=== PATIENT | female | born 1950 | race Caucasian/White ===

== ENCOUNTER 2025-02-08 15:14 | Inpatient (IN) | payer MEDICARE, MEDICAID ==
[~2025-02-08] VITALS: Ht 180.3 cm; Wt 71.8 kg
[~2025-02-08 15:14] MED LIST: ASPI-378 PO; HYDR-4833 PO; NITR50CA52 PO
[2025-02-08 16:42] LABS: Hematocrit 41.8 % (36.0-46.0); Hemoglobin 14.1 g/dL (12.2-16.2); Mean Corpuscular Hemoglobin 30.7 pg (28.0-32.0); Mean Corpuscular Volume 90.8 fL (80.0-100.0); Nucleated Red Blood Cells % 0.0 %
[2025-02-08 16:50] LABS: Chloride 103 mmol/L (98-107); Potassium 3.6 mmol/L (3.5-5.1); Sodium 141 mmol/L (136-145)
[2025-02-08 16:51] LABS: Anion Gap 12 (5-15); Carbon Dioxide 26 mmol/L (20-31)
[2025-02-08 16:52] LABS: Calcium 8.8 mg/dL (8.7-10.4)
[2025-02-08 16:56] LABS: Glucose 96 mg/dL (74-106)
[2025-02-08 16:57] LABS: BUN/Creatinine Ratio 12.5 (10.0-20.0)
[2025-02-08 17:07] LABS: Blood Urea Nitrogen 7 mg/dL (9-23)
--- NOTE | 2025-02-08 17:08 | DVH ---
CHEST RADIOGRAPH Indication: diarrhea and weakness Technique: Single frontal view of the chest was obtained Comparison: None FINDINGS: Lines and Tubes: None Lungs: No focal consolidation. Pleura: No effusion. No pneumothorax. Cardiomediastinal contours: Unremarkable Bones: No acute osseous abnormality. IMPRESSION: 1. No acute cardiopulmonary disease.
--- NOTE | 2025-02-08 18:46 | ED.PDOC ---
History of Present Illness HPI Comments 74-year-old female brought in by ambulance for 5x day history of diarrhea. Patient denies having any abdominal pain, nausea, vomiting, further acute symptoms. Chief Complaint: Diarrhea Time Seen by MD: 16:20 Primary Care Provider: KARIE Soliz Notes: Nurses Notes, Bread Molder Notes, Medications, Allergies Allergies: Coded Allergies: NO KNOWN ALLERGIES (Unverified , 11/03/14) Home Meds Active Scripts Aspirin (GERDA ASPIRIN EC LOW DOSE) 81 Mg Tab, 1 TAB PO DAILY, #30 TAB 0 Refills Prov:CECY FELIZ MD 11/06/14 Nitrofurantoin (MACRODANTIN CAPSULE) 50 Mg Cp, 100 MG PO BID, #10 CP Prov:CECY FELIZ MD 11/06/14 Reported Medications Hydrocodone-Acetaminophen ([place] 5/325MG) 1 Tab Tb, 1 TAB PO TID PRN, #30 TAB 11/06/14 Information Source: Patient, Emergency Med Personnel Mode of Arrival: EMS Severity: Moderate Timing: Hours Duration: Since onset Prehospital treatment: 12 Lead EKG, Accucheck, Account Processor Past Medical History PAST MEDICAL HISTORY: Denies Surgical History: Hysterectomy COOPER APPRENTICE History: No Pertinent 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 History Family History Family History: Unobtainable Social History Smoker: Non-Smoker Alcohol: Occasionally Drugs: Marijuana Lives In: Home All Other Systems: Reviewed and Negative (Comprehensive review of systems are negative unless otherwise stated in HPI) Physical Exam General Appearance: No Apparent Distress, Normal, Other (Appears uncomfortable) HEENT: Normal ENT Inspection, Pharynx Normal, TMs Normal Neck: Full Range of Motion, Non-Tender, Normal, Normal Inspection Respiratory: Chest Non-Tender, Lungs Clear, No Accessory Muscle Use, No Respir atory Distress, Normal Breath Sounds Cardiovascular: No Edema, No JVD, No Murmur, No Gallop, Normal Peripheral Pulses, Regular Rate/Rhythm Breast Exam: Deferred Gastrointestinal: No Organomegaly, Non Tender, No Pulsatile Mass, Normal Bowel Sounds, Soft Genitalia: Deferred Pelvic: Deferred Rectal: Deferred Extremities: No calf tenderness, Normal capillary refill, Normal inspection, Normal range of motion, Non-tender, No pedal edema Musculoskeletal : Apperance: Normal Neurologic: Alert, credit collections clerk II-XII nml as Tested, No Motor Deficits, Normal Affect, Normal Mood, No Sensory Deficits Cerebellar Function: Normal Reflexes: Normal Skin: Dry, Normal Color, Warm Lymphatic: No Adenopathy Was a procedure done? Was a procedure done?: No Differential Dx Considerations may include: Viral, dehydration, electrolyte imbalance, gastritis, among others X-Ray, Labs, Meds, VS Vital Signs Date Time Temp Pulse Resp B/P (MAP) Pulse Ox O2 Delivery O2 Flow Rate FiO2 02/08/25 15:35 98.4 72 18 104/66 96 98.4 Lab Test 02/08/25 16:27 Range/Units White Blood Count 6.2 4.4-10.8 10^3/uL Red Blood Count 4.61 4.0-5.20 10^6/uL Hemoglobin 14.1 12.2-16.2 g/dL Hematocrit 41.8 36.0-46.0 % Mean Corpuscular Volume 90.8 80.0-100.0 fL Mean Corpuscular Hemoglobin 30.7 28.0-32.0 pg Mean Corpuscular Hemoglobin Concent 33.8 32.0-36.0 g/dL Red Cell Distribution Width 14.5 H 11.8-14.3 % Platelet Count 221 140-450 10^3/uL Mean Platelet Volume 8.6 6.9-10.8 fL Neutrophils (%) (Auto) 59.6 37.0-80.0 % Lymphocytes (%) (Auto) 26.1 10.0-50.0 % Monocytes (%) (Auto) 12.6 H 0.0-12.0 % Eosinophils (%) (Auto) 1.5 0.0-7.0 % Basophils (%) (Auto) 0.2 0.0-2.0 % Neutrophils # (Auto) 3.7 1.6-8.6 10 ^3/uL Lymphocytes # (Auto) 1.6 0.4-5.4 10 ^3/uL Monocytes # (Auto) 0.8 0-1.3 10 ^3/uL Eosinophils # (Auto) 0.1 0-0.8 10 ^3/uL Basophils # (Auto) 0 0-0.2 10 ^3/uL Nucleated Red Blood Cells 0.0 % Sodium Level 141 136-145 mmol/L Potassium Level 3.6 3.5-5.1 mmol/L Chloride Level 103 98-107 mmol/L Carbon Dioxide Level 26 20-31 mmol/L Anion Gap 12 5-15 Blood Urea Nitrogen 7 L 9-23 mg/dL Creatinine 0.56 0.550-1.02 mg/dL Glomerular Filtration Rate Calc 95 >90 mL/min BUN/Creatinine Ratio 12.5 10.0-20.0 Serum Glucose 96 74-106 mg/dL Calcium Level 8.8 8.7-10.4 mg/dL Current Medications Medications (Trade) Dose Ordered Sig/Mary Route Start Time Stop Time Status Last Admin Sodium Chloride 1,000 ml @ 1,000 mls/hr Q1H ONCE IV 02/08/25 16:30 02/08/25 17:29 DC 02/08/25 19:15 Ondansetron HCl (Zofran) 4 mg ONCE ONCE IV 02/08/25 16:30 02/08/25 16:32 DC 02/08/25 19:15 Time of 1ST Reevaluation: 16:50 Reevaluation 1ST: Unchanged Patient Education/Counseling: Diagnosis, Treatment, Need For Follow Up Family Education/Counseling: No Family Present Additional Information Additional historians: None Previous medical visits reviewed: None Additional imaging and studies ordered and reviewed: Chest x-ray Labs ordered and reviewed: CBC, BMP, UA SEPSIS Sepsis Screen Date sepsis recognized/suspect: Feb 08, 2025 Time Sepsis recognized/suspect: 151 Recent Procedure: No On Antibiotic Therapy: No Respiratory Rate >20: No Heart Rate >90: No Temp<36 C (96.8 F) or >38.3 C: No SBP <90 or MAP <65 mmHG: No New Acute Mental Status Change: No Is the patient on CPAP, BIPAP,: No Physician Orders Urinalysis (02/08/25 16:04) Chest Portable (02/08/25 16:04) Allergies (02/08/25 19:28) Code Status (02/08/25 19:28) Sodium Chloride Lock (Saline Lock Ns) (02/08/25 22:00) Oxygen Per Hour (02/08/25 19:28) Hydrocodone-Acet 5/325mg Tab ([place] 32 (02/08/25 19:30) Ondansetron Hcl (Zofran) (02/08/25 19:30) Fall Risk Precautions In Place QSHIFT (02/08/25 19:28) Complete Blood Count (02/09/25 04:00) Comprehensive Metabolic Panel (02/09/25 04:00) Condition: Serious (02/08/25 19:28) Acetaminophen Tablet (Tylenol Tablet) (02/08/25 19:30) Clear Liq Diet (02/09/25 Breakfast) Maintain Bed Rest (02/08/25 19:28) Sequential Compression Device (02/08/25 ) Vital Signs Date Time Temp Pulse Resp B/P (MAP) Pulse Ox O2 Delivery O2 Flow Rate FiO2 02/08/25 15:35 98.4 72 18 104/66 96 98.4 Laboratory Tests Test 02/08/25 16:27 White Blood Count 6.2 10^3/uL (4.4-10.8) Medications Medications Dose Ordered Sig/Mary Route Start Time Stop Time Status Last Admin Dose Admin Ondansetron HCl 4 mg ONCE ONCE IV 02/08/25 16:30 02/08/25 16:32 DC 02/08/25 19:15 Sodium Chloride 1,000 ml @ 1,000 mls/hr Q1H ONCE IV 02/08/25 16:30 02/08/25 17:29 DC 02/08/25 19:15 Departure 1 Departure Time of Disposition: 21:28 (Patient with intractable diarrhea and near-syncope likely from dehydration. We will admit patient for further workup and expert consultation) Impression: Primary Impression: Near syncope Additional Impressions: Acute dehydration Intractable diarrhea Disposition: ADMITTED INPATIENT Admit to: Tele Condition: Guarded Critical Care Note Critical Care Time?: No Stability Stability form required: No Heart Score Heart Score: Heart Score Response (Comments) Value History N/A 0 EKG N/A 0 Age N/A 0 Risk Factors N/A 0 Troponin N/A 0 Total 0 I personally scribed for JESÚS ORNELAS MD ([email or web address]) on 02/08/25 at 18:46. Electronically submitted by Norman Holt [email or web address]). JESÚS ORNELAS MD Feb 08, 2025 18:46
[2025-02-08] MEDS: ONDANSETRON HCL 4 MG/2 ML VIAL IV ONE (19:15)
[2025-02-08] MEDS: SODIUM CHLORIDE 0.9% 1,000 ML IV ONE (19:15)
[2025-02-08] MEDS ORDERED: HYDROcodone-ACET 5/325MG TAB PO PRN (19:30)
[2025-02-08] MEDS ORDERED: ONDANSETRON HCL 4 MG/2 ML VIAL IV PRN (19:30)
--- NOTE | 2025-02-08 19:58 | DVHHP2 ---
History of Present Illness Reason for Visit: Diarrhea History of Present Illness The patient is a 74-year-old female who denies past medical history presented to [facility] ED with complaint of diarrhea for the past 5 days. Patient reports that she has been experiencing diarrhea associated with generalized weakness, getting worse that prompted this visit. Patient was seen and evaluated in the ED, laboratory data shows WBC 6.2, platelets 221, sodium 141, potassium 3.6, BUN 7, creatinine 0.56, GFR 95, glucose 96, calcium 8.8, blood pressure 104/66, heart rate 72, temperature 98.4 F, O2 saturation 97% on room air. Chest x-ray show no acute cardiopulmonary disease. Abdomen/pelvis CT results pending, please see medication orders section in the computer. On my assessment, patient denied chest pain, no dizziness, headache, diaphoresis, shortness of breaths, no abdominal pain, diarrhea at this moment, nausea, vomiting, fever, no chills. Patient was admitted for further evaluation and medical management. Past Medical History Denies past medical history Past Surgical History Hysterectomy Family History Reviewed, noncontributory to the management of this case. Past Social History The patient lives at home, denies smoking, drinks alcohol occasionally, uses marijuana. Review of Systems Constitutional: Yes: Weakness; No: Fever, Chills, Sweats, Malaise, Other Eyes: No: Pain, Vision change, Conjunctivae inflammation, Eyelid inflammation, Other, Redness ENT: No: Ear pain, Ear discharge, Nose pain, Nose discharge, Nose congestion, Mouth pain, Mouth swelling, Throat pain, Throat swelling, Other Respiratory: No: Cough, Dry, Shortness of breath, SOB with excertion, Wheezing, Hemoptysis, Pleuritic Pain, Sputum, Wheezing, Other Cardiovascular: No: Chest Pain, Palpitations, Orthopnea, Paroxysmal Noc. Dyspnea, Edema, Lt Headedness, Other Gastrointestinal: Diarrhea; No: Nausea, Vomiting, Abdominal Pain, Constipation, Melena, Hematochezia, Other Genitourinary: No Dysuria, No Frequency, No Incontinence, No Hematuria, No Retention, No Other Musculoskeletal: No: other, neck pain, shoulder pain, arm pain, back pain, hand pain, leg pain, foot pain Skin: No: Rash, Lesions, Jaundice, Bruising, Other Neurological: No: Weakness, Numbness, Incoordination, Change in speech, C onfusion, Seizures, Other Allergies: Coded Allergies: NO KNOWN ALLERGIES (Unverified , 11/03/14) Medications Current Medications Medications Dose Ordered Sig/Mary Route Start Time Stop Time Status Last Admin Dose Admin Sodium Chloride 10 ml Q8HR IV 02/08/25 22:00 Acetaminophen/ Hydrocodone Bitart 1 tab Q4HP PRN PO 02/08/25 19:30 Ondansetron HCl 4 mg Q4HP PRN IV 02/08/25 19:30 Acetaminophen 650 mg Q6HP PRN PO 02/08/25 19:30 Exam Vital Signs Vital Signs Date Time Temp Pulse Resp B/P (MAP) Pulse Ox O2 Delivery O2 Flow Rate FiO2 02/08/25 15:35 98.4 72 18 104/66 96 98.4 General Appearance: Alert, Oriented X3, Cooperative, No acute distress HEENT: Atraumatic, PERRLA, EOMI, Mucous membr. moist/pink Respiratory: Normal air movement Cardiovascular: Regular rate, Normal S1, Normal S2, No murmurs Abdominal: Normal bowel sounds, Soft, No tenderness, No hepatospenomegaly, No masses Extremities: No clubbing, No cyanosis, No edema, Normal pulses, No tenderness/swelling Skin: No rashes, No significant lesion Neuro: Normal speech, Normal tone, Sensation intact, Cranial nerves 3-12 NL, Reflexes 2+, Other (Generalized weakness) Psych/Mental Status: Mental status NL, Mood NL Labs/Xrays Labs Test 02/08/25 16:27 Range/Units White Blood Count 6.2 4.4-10.8 10^3/uL Red Blood Count 4.61 4.0-5.20 10^6/uL Hemoglobin 14.1 12.2-16.2 g/dL Hematocrit 41.8 36.0-46.0 % Mean Corpuscular Volume 90.8 80.0-100.0 fL Mean Corpuscular Hemoglobin 30.7 28.0-32.0 pg Mean Corpuscular Hemoglobin Concent 33.8 32.0-36.0 g/dL Red Cell Distribution Width 14.5 H 11.8-14.3 % Platelet Count 221 140-450 10^3/uL Mean Platelet Volume 8.6 6.9-10.8 fL Neutrophils (%) (Auto) 59.6 37.0-80.0 % Lymphocytes (%) (Auto) 26.1 10.0-50.0 % Monocytes (%) (Auto) 12.6 H 0.0-12.0 % Eosinophils (%) (Auto) 1.5 0.0-7.0 % Basophils (%) (Auto) 0.2 0.0-2.0 % Neutrophils # (Auto) 3.7 1.6-8.6 10 ^3/uL Lymphocytes # (Auto) 1.6 0.4-5.4 10 ^3/uL Monocytes # (Auto) 0.8 0-1.3 10 ^3/uL Eosinophils # (Auto) 0.1 0-0.8 10 ^3/uL Basophils # (Auto) 0 0-0.2 10 ^3/uL Nucleated Red Blood Cells 0.0 % Sodium Level 141 136-145 mmol/L Potassium Level 3.6 3.5-5.1 mmol/L Chloride Level 103 98-107 mmol/L Carbon Dioxide Level 26 20-31 mmol/L Anion Gap 12 5-15 Blood Urea Nitrogen 7 L 9-23 mg/dL Creatinine 0.56 0.550-1.02 mg/dL Glomerular Filtration Rate Calc 95 >90 mL/min BUN/Creatinine Ratio 12.5 10.0-20.0 Serum Glucose 96 74-106 mg/dL Calcium Level 8.8 8.7-10.4 mg/dL PATIENT: CHRISTINE MENJIVAR ACCT: [id number] UNIT: [id number] : 1950 LOC: ER ROOM / BED: / AGE / SEX: 74 / F ADM STATUS: REG ER SERVICE 1604 ORDERING PHYSICIAN: JESÚS ORNELAS MD PROCEDURE(s): CXRP - CHEST PORTABLE REASON: diarrhea and weakness ORDER NUMBER(s): [id number], ACCESSION NUMBER(s): [id number] CHEST RADIOGRAPH Indication: diarrhea and weakness Technique: Single frontal view of the chest was obtained Comparison: None FINDINGS: Lines and Tubes: None Lungs: No focal consolidation. Pleura: No effusion. No pneumothorax. Cardiomediastinal contours: Unremarkable Bones: No acute osseous abnormality. IMPRESSION: 1. No acute cardiopulmonary disease. SEPSIS Sepsis Screen Date sepsis recognized/suspect: Feb 08, 2025 Time Sepsis recognized/suspect: 1510 Recent Procedure: No On Antibiotic Therapy: No Respiratory Rate >20: No Heart Rate >90: No Temp<36 C (96.8 F) or >38.3 C: No SBP <90 or MAP <65 mmHG: No New Acute Mental Status Change: No Is the patient on CPAP, BIPAP,: No Physician Orders Urinalysis (02/08/25 16:04) Chest Portable (02/08/25 16:04) Allergies (02/08/25 19:28) Code Status (02/08/25:) Sodium Chloride Lock (Saline Lock Ns) (02/08/25 22:00) Oxygen Per Hour (02/08/25:) Hydrocodone-Acet 5/325mg Tab ([place] 5/32 (02/08/25 19:30) Ondansetron Hcl (Zofran) (02/08/25 19:30) Fall Risk Precautions In Place QSHIFT (02/08/25:) Complete Blood Count (02/09/25 04:00) Comprehensive Metabolic Panel (02/09/25 04:00) Condition: Serious (02/08/25 19:28) Acetaminophen Tablet (Tylenol Tablet) (02/08/25 19:30) Clear Liq Diet (02/09/25 Breakfast) Maintain Bed Rest (02/08/25:28) Sequential Compression Device (02/08/25 ) Vital Signs Date Time Temp Pulse Resp B/P (MAP) Pulse Ox O2 Delivery O2 Flow Rate FiO2 02/08/25 15:35 98.4 72 18 104/66 96 98.4 Laboratory Tests Test 02/08/25 16:27 White Blood Count 6.2 10^3/uL (4.4-10.8) Medications Medications Dose Ordered Sig/Mary Route Start Time Stop Time Status Last Admin Dose Admin Ondansetron HCl 4 mg ONCE ONCE IV 02/08/25 16:30 02/08/25 16:32 DC 02/08/25 19:15 4 MG Sodium Chloride 1,000 ml @ 1,000 mls/hr Q1H ONCE IV 02/08/25 16:30 02/08/25 17:29 DC 02/08/25 19:15 1,000 MLS/HR Assessment/Plan Assessment/Plan Intractable diarrhea Near syncope Acute dehydration Generalized weakness Plan 1. Admit to telemetry urinary 2. Breathing treatment 3. Pain control management 4. Management of fluids and electrolytes 5. Consultation for hospitalist 6. Diagnostic tests chest x-ray 7. DVT prophylaxis on SCDs 8. Repeat labs CBC, CMP in a.m. 9. Continue with current medical management 10. Treatment plan discussed with patient and RN. Patient verbalized understanding. Plan discussed with: Patient, Other (RN) My Orders Orders - JEWELS BORJA DNP Procedure Category Date Status Time Allergies MUKESH 02/08/25 In Process 19:28 Code Status CODE 02/08/25 Transmitted 19:28 Sodium Chloride Lock PHA 02/08/25 In Process (Saline Lock Ns) 22:00 Oxygen Per Hour RT 02/08/25 Transmitted 19:28 Hydrocodone-Acet PHA 02/08/25 In Process 5/325mg Tab ([place] 19:30 Ondansetron Hcl PHA 02/08/25 In Process (Zofran) 19:30 Fall Risk Precautions MUKESH 02/08/[address] 19:28 Complete Blood Count LAB 02/09/25 Verified 04:00 Comprehensive LAB 02/09/25 Verified Metabolic Panel 04:00 Condition: Serious MUKESH 02/08/25 In Process 19:28 Acetaminophen Tablet PHA 02/08/25 In Process (Tylenol Tablet) 19:30 Clear Liq Diet DIET 02/09/25 Transmitted Breakfast Maintain Bed Rest MUKESH 02/08/25 In Process 19:28 Sequential MUKESH 02/08/25 In Process Compression Device Problem List: (1) Intractable diarrhea (2) Near syncope (3) Acute dehydration (4) Generalized weakness Date of Service: Feb 08, 2025 Billing Provider: JEWELS BORJA DNP Common Visit Codes: [id number] INP/OBS CARE (HIGH) JEWELS BORJA DNP Feb 08, 2025 19:58
[2025-02-08] MEDS ORDERED: MORPHINE SULFATE INJ 2 MG/ml SYRG IV PRN (20:00)
[2025-02-08] MEDS ORDERED: NITROGLYCERIN 0.4 MG SL TAB SL PRN (20:00)
[2025-02-08] MEDS: SODIUM CHLOR 0.9% PF (SALINE LOCK) 10ML VIAL/SYR IV SCH (22:17)
[2025-02-09] VITALS (9 sets, daily range): BP systolic 95–144; BP diastolic 55–93; PULSE 63–102; RESP 12–20; TEMP 97.1–98.9; O2SAT 91–98
[2025-02-09 07:28] LABS: Hematocrit 40.8 % (36.0-46.0); Hemoglobin 13.7 g/dL (12.2-16.2); Mean Corpuscular Hemoglobin 30.9 pg (28.0-32.0); Mean Corpuscular Volume 92.1 fL (80.0-100.0); Nucleated Red Blood Cells % 0.0 %
[2025-02-09 08:24] LABS: Albumin 3.6 g/dL (3.2-4.8); Alkaline Phosphatase 51 U/L (46-116); BUN/Creatinine Ratio 12.5 (10.0-20.0); Carbon Dioxide 23 mmol/L (20-31); Glucose 88 mg/dL (74-106); Total Protein 6.7 g/dL (5.7-8.2)
[2025-02-09 08:25] LABS: Alanine Aminotransferase < 9 U/L (7-40); Bilirubin, Total 0.9 mg/dL (0.2-1.0); Blood Urea Nitrogen 7 mg/dL (9-23); Calcium 8.4 mg/dL (8.7-10.4)
[2025-02-09 08:49] LABS: Anion Gap 12 (5-15); Chloride 107 mmol/L (98-107); Potassium 2.9 mmol/L (3.5-5.1); Sodium 142 mmol/L (136-145)
[2025-02-09] MEDS: ACETAMINOPHEN 325 MG TAB PO PRN (11:02)
--- NOTE | 2025-02-09 12:26 | DVH ---
EXAM: CT CT AB PEL WO CON-NO ORAL OR IV INDICATION: Diarrhea TECHNIQUE: Volumetric multidetector CT images of the abdomen and pelvis were obtained without contrast. All CT scans at this facility use dose modulation, iterative reconstruction, and/or weight based dosing when appropriate to reduce radiation dose to as low as reasonably achievable. COMPARISON: None FINDINGS: [LOWER CHEST]: Atelectasis in bases coronary artery calcifications. [LIVER]: Normal hepatic size without suspicious focal lesion. [GALLBLADDER AND BILIARY TREE]: Possible nondependent gallstone [SPLEEN]: Unremarkable. [PANCREAS]: Unremarkable. [ADRENAL GLANDS]: Unremarkable [KIDNEYS]: No hydronephrosis. No nephroureterolithiasis. [BLADDER]: Unremarkable for the degree distention. [REPRODUCTIVE ORGANS]: Hysterectomy. [BOWEL/MESENTERY]: Stomach is normal. No CT evidence of bowel obstruction. minimal sigmoid diverticulosis. Mild stool burden. Question minimal loose stool correlate for diarrheal illness. 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 [MUSCULOSKELETAL]: No acute fracture or aggressive focal osseous lesion. Multifocal degenerative change of the visualized spine. 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 Chronic areas of superior endplate lower thoracic vertebral body height loss rotatory scoliotic curvature. IMPRESSION: 1. Question minimal loose stool correlate for diarrheal illness. 2. Mild stool burden. 3. Minimal sigmoid diverticulosis.
--- NOTE | 2025-02-09 12:55 | DVHPN2 ---
Changes from previous H/P or p: No Changes Eyes: No Pain, No Vision change, No Conjunctivae inflammation, No Eyelid inflammation, No Other, No Redness ENT: No Ear pain, No Ear discharge, No Nose pain, No Nose discharge, No Nose congestion, No Mouth pain, No Mouth swelling, No Throat pain, No Throat swelling, No Other Cardiovascular: No Chest Pain, No Palpitations, No Orthopnea, No Paroxysmal Noc. Dyspnea, No Edema, No Lt Headedness, No Other Respiratory: No Cough, No Dry, No Shortness of breath, No SOB with excertion, No Wheezing, No Hemoptysis, No Pleuritic Pain, No Sputum, No Other Gastrointestinal: No Nausea, No Vomiting, No Abdominal Pain; Diarrhea; No Constipation, No Melena, No Hematochezia, No Other Genitourinary: No Dysuria, No Frequency, No Incontinence, No Hematuria, No Retention, No Other Musculoskeletal: No other, No neck pain, No shoulder pain, No arm pain, No back pain, No hand pain, No leg pain, No foot pain Skin: No Rash, No Lesions, No Jaundice, No Bruising, No Other Objective Vitals Vital Signs Date Time Temp Pulse Resp B/P (MAP) Pulse Ox O2 Delivery O2 Flow Rate FiO2 02/09/25 09:00 98.4 67 18 123/83 (96) 92 98.4 02/09/25 01:02 Room Air* 0 21 Intake/Output Intake and Output 02/09/25 07:00 Intake Total 1480 ml Balance 1480 ml Intake Oral 480 ml IV Total 1000 ml # Bowel Movements 2 Medications Current Medications Medications Dose Ordered Sig/Mary Route Start Time Stop Time Status Last Admin Dose Admin Sodium Chloride 10 ml Q8HR IV 02/08/25 22:00 02/09/25 09:40 10 ML Acetaminophen/ Hydrocodone Bitart 1 tab Q4HP PRN PO 02/08/25 19:30 Ondansetron HCl 4 mg Q4HP PRN IV 02/08/25 19:30 Acetaminophen 650 mg Q6HP PRN PO 02/08/25 19:30 02/09/25 11:02 650 MG Nitroglycerin 0.4 mg Q5MINP PRN SL 02/08/25 20:00 Morphine Sulfate 2 mg Q30M PRN IV 02/08/25 20:00 Lactated Ringer's 1,000 ml @ 125 mls/hr Q8H IV 02/09/25 12:45 UNV Laboratory Results Laboratory Tests 02/09/25 06:24 Chemistry Test 02/08/25 16:27 02/09/25 06:24 Calcium Level 8.8 mg/dL (8.7-10.4) 8.4 mg/dL (8.7-10.4) L Albumin 3.6 g/dL (3.2-4.8) Total Protein 6.7 g/dL (5.7-8.2) LFT Test 02/09/25 06:24 Alanine Aminotransferase (ALT) < 9 U/L (7-40) Alkaline Phosphatase 51 U/L (46-116) Aspartate Amino Transferase (AST) 14 U/L (13-40) Total Bilirubin 0.9 mg/dL (0.2-1.0) Microbiology Microbiology Date/Time Source Procedure Growth Status 02/09/25 01:20 Nose MRSA Screen - Final Complete Assessment/Plan Assessment/Plan Intractable diarrhea we will for C diff and culture WBC Near syncope Acute dehydration IV fluids Generalized weakness sister Rekha [phone] at bedside Patient Came from [facility] living [facility] (Dr Lamb) Plan discussed with: Patient My Orders Orders - MARYAM LARA MD Procedure Category Date Status Time Stool Bacterial MONSE 02/09/25 Logged Culture 12:44 Stool Wbc LAB 02/09/25 Logged 12:44 Clostridium Difficile MONSE 02/09/25 Logged Toxin 12:44 Lactated Ringer's PHA 02/09/25 Logged 12:45 Date of Service: Feb 09, 2025 Billing Provider: MARYAM LARA MD Common Visit Codes: [id number] INP/OBS CARE(HIGH) MARYAM LARA MD Feb 09, 2025 12:55
[2025-02-09] MEDS ORDERED: LOPERAMIDE HCL 2 MG CAP/TAB PO PRN (13:00)
[2025-02-09] MEDS: LACTATED RINGER'S 1,000 ML IV SCH (13:21)
[2025-02-09 13:51] LABS: Urine Protein, UAD TRACE (Negative)
[2025-02-10 01:00] VITALS: BP 126/72; PULSE 79; RESP 18; TEMP 98.5; O2SAT 96
[2025-02-10 05:00] VITALS: BP 169/98; PULSE 64; RESP 18; TEMP 97.5; O2SAT 96
[2025-02-10 08:00] VITALS: PULSE 91
[2025-02-10 09:00] VITALS: BP 154/99; PULSE 87; RESP 18; TEMP 97.7; O2SAT 94
[2025-02-10 13:00] VITALS: BP 148/98; PULSE 90; RESP 16; TEMP 97.8; O2SAT 95
--- NOTE | 2025-02-10 13:11 | DVHPN2 ---
Reviewed: Care Plan Changes from previous H/P or p: No Changes Eyes: No Pain, No Vision change, No Conjunctivae inflammation, No Eyelid inflammation, No Other, No Redness ENT: No Ear pain, No Ear discharge, No Nose pain, No Nose discharge, No Nose congestion, No Mouth pain, No Mouth swelling, No Throat pain, No Throat swelling, No Other Cardiovascular: No Chest Pain, No Palpitations, No Orthopnea, No Paroxysmal Noc. Dyspnea, No Edema, No Lt Headedness, No Other Respiratory: No Cough, No Dry, No Shortness of breath, No SOB with excertion, No Wheezing, No Hemoptysis, No Pleuritic Pain, No Sputum, No Other Gastrointestinal: No Nausea, No Vomiting, No Abdominal Pain; Diarrhea; No Constipation, No Melena, No Hematochezia, No Other Genitourinary: No Dysuria, No Frequency, No Incontinence, No Hematuria, No Retention, No Other Musculoskeletal: No other, No neck pain, No shoulder pain, No arm pain, No back pain, No hand pain, No leg pain, No foot pain Skin: No Rash, No Lesions, No Jaundice, No Bruising, No Other Objective Vitals Vital Signs Date Time Temp Pulse Resp B/P (MAP) Pulse Ox O2 Delivery O2 Flow Rate FiO2 02/10/25 09:00 97.7 87 18 154/99 (117) 94 97.7 02/10/25 08:00 Room Air* 0 21 Intake/Output Intake and Output 02/10/25 07:00 Intake Total 558 ml Output Total 3 ml Balance 555 ml Intake Oral 558 ml Output Urine/Stool Mix 3 ml # Voids 4 Medications Current Medications Medications Dose Ordered Sig/Mary Route Start Time Stop Time Status Last Admin Dose Admin Sodium Chloride 10 ml Q8HR IV 02/08/25 22:00 02/10/25 06:09 10 ML Acetaminophen/ Hydrocodone Bitart 1 tab Q4HP PRN PO 02/08/25 19:30 Ondansetron HCl 4 mg Q4HP PRN IV 02/08/25 19:30 Acetaminophen 650 mg Q6HP PRN PO 02/08/25 19:30 02/09/25 17:55 650 MG Nitroglycerin 0.4 mg Q5MINP PRN SL 02/08/25 20:00 Morphine Sulfate 2 mg Q30M PRN IV 02/08/25 20:00 Lactated Ringer's 1,000 ml @ 125 mls/hr Q8H IV 02/09/25 12:45 02/10/25 06:11 125 MLS/HR Loperamide HCl 2 mg PRN PRN PO 02/09/25 13:00 Laboratory Results Laboratory Tests 02/09/25 06:24 Urinalysis Test 02/09/25 13:10 Urine Color Yellow (Yellow) Urine Clarity Turbid (Clear) H Urine pH 5.5 (5.0-9.0) Urine Specific [place] 1.020 (1.001-1.035) Urine Protein Trace (Negative) H Urine Ketones 1+ (Negative) H Urine Blood Negative /uL (Negative) Urine Nitrite 2+ (Negative) H Urine Bilirubin Negative (Negative) Urine Urobilinogen Normal mg/dL (Negative) Urine Leukocyte Esterase 1+ /uL (Negative) Urine RBC 3 /hpf (0 - 4) Urine Microscopic WBC 14 /HPF (0-5) H Urine Squamous Epithelial Cells Few /hpf (<5) Urine Bacteria Mod /hpf (None Seen) H Urine Mucus Few (None Seen) Urine Glucose Normal mg/dL (Normal) Microbiology Microbiology Date/Time Source Procedure Growth Status 02/09/25 01:20 Nose MRSA Screen - Final Complete Labs and/or images reviewed: Labs reviewed by me, Image(s) reviewed by me Assessment/Plan Assessment/Plan Intractable diarrhea we will for C diff and culture WBC Near syncope Acute dehydration IV fluids Generalized weakness sister Rekha [phone] at bedside Patient Came from [facility] (Dr Lamb) Plan discussed with: Patient My Orders Orders - MARYAM LARA MD Procedure Category Date Status Time Regular Diet DIET 02/09/25 Transmitted Dinner Date of Service: Feb 10, 2025 Billing Provider: MARYAM LARA MD Common Visit Codes: [id number] INP/OBS CARE(HIGH) MARYAM LARA MD Feb 10, 2025 13:11
--- NOTE | 2025-02-10 13:15 | DVHDS2 ---
Discharge Summary Date of Admission Feb 08, 2025 at 19:57 Date of Discharge: Feb 10, 2025 Admitting Diagnosis Generalized weakness diarrhea Wounds: None Labs/Diagnostic Data: Laboratory Results Test 02/09/25 13:10 02/09/25 06:24 Urine Color Yellow (Yellow) Urine Clarity Turbid (Clear) Urine pH 5.5 (5.0-9.0) Urine Specific [place] 1.020 (1.001-1.035) Urine Protein Trace (Negative) Urine Ketones 1+ (Negative) Urine Blood Negative /uL (Negative) Urine Nitrite 2+ (Negative) Urine Bilirubin Negative (Negative) Urine Urobilinogen Normal mg/dL (Negative) Urine Leukocyte Esterase 1+ /uL (Negative) Urine RBC 3 /hpf (0 - 4) Urine Microscopic WBC 14 /HPF (0-5) Urine Squamous Epithelial Cells Few /hpf (<5) Urine Bacteria Mod /hpf (None Seen) Urine Mucus Few (None Seen) Urine Glucose Normal mg/dL (Normal) White Blood Count 4.5 10^3/uL (4.4-10.8) Red Blood Count 4.44 10^6/uL (4.0-5.20) Hemoglobin 13.7 g/dL (12.2-16.2) Hematocrit 40.8 % (36.0-46.0) Mean Corpuscular Volume 92.1 fL (80.0-100.0) Mean Corpuscular Hemoglobin 30.9 pg (28.0-32.0) Mean Corpuscular Hemoglobin Concent 33.6 g/dL (32.0-36.0) Red Cell Distribution Width 14.4 % (11.8-14.3) Platelet Count 199 10^3/uL (140-450) Mean Platelet Volume 8.6 fL (6.9-10.8) Neutrophils (%) (Auto) 60.0 % (37.0-80.0) Lymphocytes (%) (Auto) 24.5 % (10.0-50.0) Monocytes (%) (Auto) 13.7 % (0.0-12.0) Eosinophils (%) (Auto) 1.5 % (0.0-7.0) Basophils (%) (Auto) 0.3 % (0.0-2.0) Neutrophils # (Auto) 2.7 10 ^3/uL (1.6-8.6) Lymphocytes # (Auto) 1.1 10 ^3/uL (0.4-5.4) Monocytes # (Auto) 0.6 10 ^3/uL (0-1.3) Eosinophils # (Auto) 0.1 10 ^3/uL (0-0.8) Basophils # (Auto) 0 10 ^3/uL (0-0.2) Nucleated Red Blood Cells 0.0 % Sodium Level 142 mmol/L (136-145) Potassium Level 2.9 mmol/L (3.5-5.1) Chloride Level 107 mmol/L (98-107) Carbon Dioxide Level 23 mmol/L (20-31) Anion Gap 12 (5-15) Blood Urea Nitrogen 7 mg/dL (9-23) Creatinine 0.56 mg/dL (0.550-1.02) Glomerular Filtration Rate Calc 95 mL/min (>90) BUN/Creatinine Ratio 12.5 (10.0-20.0) Serum Glucose 88 mg/dL (74-106) Calcium Level 8.4 mg/dL (8.7-10.4) Total Bilirubin 0.9 mg/dL (0.2-1.0) Aspartate Amino Transferase (AST) 14 U/L (13-40) Alanine Aminotransferase (ALT) < 9 U/L (7-40) Alkaline Phosphatase 51 U/L (46-116) Total Protein 6.7 g/dL (5.7-8.2) Albumin 3.6 g/dL (3.2-4.8) Other Laboratory Tests 02/09/25 06:24 Brief Hx & Hospital Course: 74-year-old female with no previous medical history burden from [facility] for generalized weakness after diarrhea. Patient did not have any diarrhea after coming here given IV fluids CT abdomen pelvis without contrast negative discussed management with the sister Rekha at bedside Consults/Reason for consult None Operations or Procedures CT abdomen pelvis without contrast Condition at Discharge: Fair Final Diagnosis/Problems List Intractable diarrhea we will for C diff and culture WBC Near syncope Acute dehydration IV fluids Generalized weakness Discharge Disposition: Assisted Living Facility Discharge Instruct/Medications Diet: Regular Activity: Light activity Follow Up/Referral: Follow up with the assisted living facility Dr. Sullivan all previous home medications Medications: None Scheduled Aspirin (Ale Aspirin Ec Low Dose), 1 TAB PO DAILY Nitrofurantoin (Macrodantin Capsule), 100 MG PO BID Scheduled PRN Hydrocodone-Acetaminophen ([place] 5/325MG), 1 TAB PO TID PRN, (Reported) 36 (Time Taken for discharge summary 36 mts) Discharge Statement: "Patient was advised to return to the ER or call 911 if any headaches, dizziness, shortness of breath, chest pain, abdominal pain, bleeding, fevers, or worsening of medical condition. Patient was counseled about treatment plan, medications, possible side effects, patientverbalized understanding. All questions were answered to the best of my ability. This discharge took greater then 30 minutes in planning, reviewing documentation, counseling the patient, and discussing with other team members." ASSESSMENT ASSESSMENT Hospital Course Improved Assessment Intractable diarrhea we will for C diff and culture WBC Near syncope Acute dehydration IV fluids Generalized weakness Date of Service: Feb 10, 2025 Billing Provider: MARYAM LARA MD Common Visit Codes: [id number] DISCH DAY >30min MARYAM LARA MD Feb 10, 2025 13:15
[2025-02-10 16:44] VITALS: BP 145/93; PULSE 76; RESP 18; TEMP 98.6; O2SAT 99
== END 2025-02-10 16:45 | disposition home or self-care (01) | DRG 641 ==
LOC: EDUNIT# 15:14 → EDBD 15:14 → ER 15:14 → OVERFLOW 19:57 → TELE-WESTW 19:58
PROVIDERS: ADMIT Family Medicine; ATTEND Family Medicine
DX: E86.0 Dehydration (principal); F12.90 Cannabis use, unspecified, uncomplicated; R19.7 Diarrhea, unspecified; R55 Syncope and collapse; Z79.82 Long term (current) use of aspirin; Z90.710 Acquired absence of both cervix and uterus
CPT/HCPCS: 36415; 71045; 74176; 80048; 80053; 81001; 85025; 87081; 96361; 96374; G0378; J2405